=== PATIENT | female | born 2000 ===

== ENCOUNTER → 2023-11-15 09:04 | Outpatient (CLI) | payer OTHER, SELFPAY ==
[2023-11-19 17:11] LABS: Chlamydia trachomatis Negative (Negative); Mycoplasma genitalium Negative (Negative); Neisseria gonorrhoeae Negative (Negative)
== END ==
PROVIDERS: PCP Family Medicine; Referring Provider Obstetrics & Gynecology; Visit Provider Obstetrics & Gynecology
DX: Z01.419 Encounter for gynecological examination (general) (routine) without abnormal findings (principal)
CPT/HCPCS: 87491; 87563; 87591